=== PATIENT | male | born 1975 | race Caucasian/White ===

== ENCOUNTER → 2022-07-16 | Outpatient (CLI) | payer BC ==
--- NOTE | 2022-07-16 11:03 | Diagnostic Imaging Report ---
PROCEDURE: MRI pelvis without contrast. TECHNIQUE: Multiplanar, multisequence MRI of the pelvis was performed without contrast. INDICATION: Pelvic pain extending down the left groin and leg. FINDINGS: There is no mass, fluid collection, mass effect, edema or anatomic abnormality along the expected course of the left ileo-inguinal nerve. The lower abdominal wall appeared intact. The inguinal canal unremarkable. The iliacus and visualized lower psoas musculature appeared unremarkable. The pelvic sidewalls unremarkable. The core muscles of the pelvis and lower abdominal wall as well as gluteus appeared symmetric. No focal fatty atrophy. No findings of denervation. No bone mass or bony destructive lesion. No marrow edema. No pelvic ascites. Perirectal and ischial rectal fat showed no distortion. The presacral pelvic fat normal. Urinary bladder unremarkable in morphology. No pelvic adenopathy. IMPRESSION: Unremarkable noncontrasted pelvic MR. In particular no findings to explain the pain referable to the ilioinguinal nerve. Dictated by: Dictated on workstation # [id number]
== END ==
LOC: RAD 08:00
PROVIDERS: ATTEND Pain Medicine Interventional Pain Medicine
DX: G57.80 Other specified mononeuropathies of unspecified lower limb (principal)
CPT/HCPCS: 72195

== ENCOUNTER → 2022-07-30 | Outpatient (CLI) | payer BC ==
--- NOTE | 2022-07-30 09:31 | Diagnostic Imaging Report ---
CLINICAL INDICATION: Patient had recent pelvic MRI here. Patient is having pelvic and groin pain and pain involving both legs. EXAM: MRI of the lumbar spine without contrast. Sequences include sagittal T2, sagittal T1, sagittal T2 fat-sat, and axial T2. COMPARISON: None. FINDINGS: There is Modic type I degenerative signal changes involving the L3-L4 and L4-L5 endplates. There is Modic type II degenerative signal changes involving the anterior aspect of L3-L4 region. Small intraosseous hemangioma within the posterior inferior aspect of the L2 vertebra. There is no significant paraspinal soft tissue abnormality. The visualized portions of the distal thoracic spinal cord, conus medullaris, and cauda equina nerve roots are unremarkable. The conus medullaris tip is seen at the upper L1 vertebral body level. L1-L2 mild bilateral facet arthropathy. There is no significant central spinal canal or neural foramen narrowing. L2-L3: There is chronic Schmorl's node involving the upper aspect of the L3 vertebra. There is minimal disk bulge with moderate loss of disk space height. There is no significant central spinal canal or neural foramen narrowing. L3-L4: There is diffuse disk bulge with mild loss of disk space height. There is mild bilateral facet arthropathy. There is no significant central canal stenosis. There is mild to moderate right neural foramen narrowing and moderate left neural foramen narrowing. L4-L5: There is a diffuse disk bulge and mild bilateral facet arthropathy. There is mild central canal stenosis. There is severe bilateral neural foramen narrowing. L5-S1: There is no significant disk bulge. There is no significant central spinal canal or neural foramen narrowing. IMPRESSION: There is multilevel lumbar spine degenerative disease which is described above. Dictated by: Dictated on workstation # [id number]
== END ==
LOC: RAD 08:21
PROVIDERS: ATTEND Nurse Practitioner
DX: M47.26 Other spondylosis with radiculopathy, lumbar region (principal); M51.16 Intervertebral disc disorders with radiculopathy, lumbar region; M48.061 Spinal stenosis, lumbar region without neurogenic claudication
CPT/HCPCS: 72148